=== PATIENT | male | born 1930 | race Caucasian/White ===

== ENCOUNTER 2017-12-28 23:35 | Inpatient (IN) | payer MEDICARE ==
[~2017-12-28] VITALS: Ht 180.3 cm; Wt 71.3 kg
[~2017-12-28 23:35] MED LIST: ACET-1757 PO; CA C1TAB62 PO; CARB1TAB43 PO; CARB1TAB47 PO; FINA5TAB4 PO; GABA-826 PO; MULT-658 PO; SULF1TAB24 PO; TAMS0.4C2 PO; TEMA15CA PO; TRAM50TA2 PO
[2017-12-29] MEDS ORDERED: MAGN2400 PO (00:08)
[2017-12-29] MEDS ORDERED: POLY17PO5 PO (00:08)
[2017-12-29] MEDS ORDERED: CYAN100014 PO (00:08)
[2017-12-29] MEDS ORDERED: LACT1CAP44 PO (00:08)
[2017-12-29] MEDS ORDERED: CALC-451 PO (00:08)
[2017-12-29] MEDS ORDERED: OMEP-110 PO (00:08)
[2017-12-29 00:40] LABS: ALBUMIN 3.4 g/dL (3.4-5.0); ANION GAP 7 mmol/L (5-15); CALCIUM 8.8 mg/dL (8.5-10.1); CHLORIDE 103 mmol/L (98-107); CREATININE 0.93 mg/dL (0.7-1.3)
[2017-12-29 01:03] LABS: BASOPHILS # (AUTO) 0.03 x10^3/uL (0-0.1); BASOPHILS % (AUTO) 0 % (0-1); EOSINOPHILS # (AUTO) 0.48 x10^3/uL (0-0.4); EOSINOPHILS % (AUTO) 6 % (1-7); LYMPHOCYTES # (AUTO) 1.57 x10^3/uL (1-3.4); LYMPHOCYTES % (AUTO) 19 % (22-44); MD NO; MEAN CORPUSCULAR HEMOGLOBIN 29.9 pg (27.5-34.5); MEAN CORPUSCULAR VOLUME 90.7 fL (81-97); MEAN PLATELET VOLUME 7.4 fL (7.4-10.4); MONOCYTES # (AUTO) 0.94 x10^3/uL (0.2-0.8); MONOCYTES % (AUTO) 12 % (2-9); NEUTROPHILS # (AUTO) 5.14 x10^3/uL (1.8-6.8); NEUTROPHILS % (AUTO) 63 % (42-75); PLATELET COUNT 264 x10^3/uL (130-400); RED BLOOD COUNT 4.64 x10^6/uL (4.38-5.82); RED CELL DISTRIBUTION WIDTH 14.4 % (9.4-14.8)
[2017-12-29 01:09] LABS: CULTURE INDICATED? YES; MICROSCOPIC INDICATED
[2017-12-29] MEDS ORDERED: CEFTRIAXONE PMX 1GM/50ML 50 ML IV ONE (01:30)
[2017-12-29] MEDS ORDERED: NYSTATIN TOPICAL POWDER 15GM TP PRN (01:30)
[2017-12-29] MEDS ORDERED: CEFTRIAXONE PMX 1GM/50ML 50 ML ONE (01:42)
[2017-12-29] MEDS ORDERED: POLYETHYLENE GLYCOL 17 GM PACKET PO PRN (02:30)
[2017-12-29] MEDS ORDERED: BISACODYL 10 MG SUPP PR PRN (02:30)
[2017-12-29] MEDS ORDERED: PROMETHAZINE 25 MG/ML, 1ML IM PRN (02:30)
[2017-12-29] MEDS ORDERED: ONDANSETRON 2MG/ML, 2ML IVPush PRN (02:30)
[2017-12-29] MEDS ORDERED: MAGNESIUM HYDROXIDE 8%, 30ML UDC PO PRN (02:30)
[2017-12-29] MEDS ORDERED: ONDANSETRON ODT 4 MG PO PRN (02:30)
[2017-12-29] MEDS ORDERED: ACETAMINOPHEN 325 MG TABLET PO PRN (02:30)
[2017-12-29] MEDS ORDERED: morphine SULFATE 10 MG/ML, 1ML IVPush PRN (02:30)
[2017-12-29] MEDS ORDERED: hydrALAzine 20 MG/ML, 1ML IVPush PRN (02:30)
[2017-12-29 02:35] VITALS: BP 126/77
[2017-12-29] MEDS: ACETAMINOPHEN 325 MG TABLET PO SCH ×5 (03:00→19:00)
[2017-12-29 03:07] LABS: HEMOGLOBIN A1C 5.6 % (4.2-6.3)
[2017-12-29 03:08] LABS: FREE T4 (FREE THYROXINE) 0.99 ng/dL (0.76-1.46); THYROID STIMULATING HORMONE 6.65 mIU/L (0.358-3.740)
[2017-12-29] MEDS: SODIUM CHLORIDE 0.9% 1,000 ML IV SCH ×2 (03:10→12:05)
[2017-12-29] MEDS: PIPERACILLIN/TAZO/PMX 3.375GM 50 ML IV SCH ×4 (03:10→20:46)
[2017-12-29] MEDS: CARBIDOPA/LEVODOPA CR 25 MG/100 MG TABLET PO SCH ×4 (03:44→20:46)
[2017-12-29] MEDS: HEPARIN 5,000 UNITS/ML, 1ML SQ SCH ×3 (06:06→22:47)
[2017-12-29 06:35] VITALS: BP 110/67
[2017-12-29] MEDS: CALCIUM/VITAMIN D3 250-125 TABLET PO SCH (10:30)
[2017-12-29] MEDS: CYANOCOBALAMIN 1,000 MCG TABLET PO SCH (10:30)
[2017-12-29] MEDS: LACTOBACILLUS CHEW TABLET PO SCH (10:30)
[2017-12-29] MEDS: OMEPRAZOLE 20 MG CAPSULE.DR PO SCH (10:30)
[2017-12-29] MEDS: GABAPENTIN 100 MG CAPSULE PO SCH ×2 (10:31→20:46)
[2017-12-29] MEDS: POLYETHYLENE GLYCOL 17 GM PACKET PO SCH (10:31)
[2017-12-29] MEDS: MULTIVITAMIN 1 TABLET PO SCH (10:31)
[2017-12-29] MEDS: SENNA/DOCUSATE TABLET PO SCH (10:31)
[2017-12-29 14:00] VITALS: BP 106/67
[2017-12-29 18:54] VITALS: BP 102/68
[2017-12-30 01:30] VITALS: BP 93/60
[2017-12-30] MEDS: PIPERACILLIN/TAZO/PMX 3.375GM 50 ML IV SCH ×4 (02:54→23:30)
[2017-12-30 06:25] LABS: BASOPHILS # (AUTO) 0.02 x10^3/uL (0-0.1); BASOPHILS % (AUTO) 0 % (0-1); EOSINOPHILS # (AUTO) 0.56 x10^3/uL (0-0.4); EOSINOPHILS % (AUTO) 9 % (1-7); LYMPHOCYTES # (AUTO) 1.57 x10^3/uL (1-3.4); LYMPHOCYTES % (AUTO) 25 % (22-44); MD NO; MEAN CORPUSCULAR HEMOGLOBIN 29.8 pg (27.5-34.5); MEAN CORPUSCULAR HGB CONC 33.1 g/dL (33.2-36.2); MEAN CORPUSCULAR VOLUME 90.2 fL (81-97); MEAN PLATELET VOLUME 7.7 fL (7.4-10.4); MONOCYTES # (AUTO) 0.73 x10^3/uL (0.2-0.8); MONOCYTES % (AUTO) 11 % (2-9); NEUTROPHILS # (AUTO) 3.49 x10^3/uL (1.8-6.8); NEUTROPHILS % (AUTO) 55 % (42-75); PLATELET COUNT 224 x10^3/uL (130-400); RED CELL DISTRIBUTION WIDTH 14.3 % (9.4-14.8)
[2017-12-30] MEDS: HEPARIN 5,000 UNITS/ML, 1ML SQ SCH ×3 (06:25→22:31)
[2017-12-30 06:34] LABS: ALBUMIN 2.6 g/dL (3.4-5.0); ANION GAP 5 mmol/L (5-15); CALCIUM 7.7 mg/dL (8.5-10.1); CHLORIDE 112 mmol/L (98-107)
[2017-12-30 06:37] LABS: ALKALINE PHOSPHATASE 81 U/L (45-117); BILIRUBIN,TOTAL 0.7 mg/dL (0.2-1.0); CHOL/HDL RATIO 2.6; CHOLESTEROL, TOTAL 111 mg/dL (140-239); CREATININE 0.92 mg/dL (0.7-1.3); HDL CHOL % 38 % (26-37); HDL CHOLESTEROL (DIRECT) 42 mg/dL (40-60); LDL CHOLESTEROL,CALCULATED 58 mg/dL (54-169); LDL/HDL RATIO 1.4 (0.5-3.0); TOTAL PROTEIN 5.9 g/dL (6.4-8.2); TRIGLYCERIDES 57 mg/dL (50-200); VLDL CHOLESTEROL 11 mg/dL (0-25)
[2017-12-30 06:38] LABS: ALANINE AMINOTRANSFERASE < 6 U/L (12-78)
[2017-12-30] MEDS: OMEPRAZOLE 20 MG CAPSULE.DR PO SCH (09:00)
[2017-12-30 09:50] VITALS: BP 88/55
[2017-12-30] MEDS: GABAPENTIN 100 MG CAPSULE PO SCH ×2 (10:58→22:22)
[2017-12-30] MEDS: POLYETHYLENE GLYCOL 17 GM PACKET PO SCH (10:58)
[2017-12-30] MEDS: SENNA/DOCUSATE TABLET PO SCH (10:58)
[2017-12-30] MEDS: LACTOBACILLUS CHEW TABLET PO SCH (10:58)
[2017-12-30] MEDS: MULTIVITAMIN 1 TABLET PO SCH (10:58)
[2017-12-30] MEDS: CYANOCOBALAMIN 1,000 MCG TABLET PO SCH (10:58)
[2017-12-30] MEDS: CARBIDOPA/LEVODOPA CR 25 MG/100 MG TABLET PO SCH ×3 (10:58→22:22)
[2017-12-30] MEDS: CALCIUM/VITAMIN D3 250-125 TABLET PO SCH (10:58)
[2017-12-30 14:20] VITALS: BP 94/59
[2017-12-30 18:42] VITALS: BP 93/56
[2017-12-31 00:02] VITALS: BP 90/49
[2017-12-31] MEDS: HEPARIN 5,000 UNITS/ML, 1ML SQ SCH ×3 (05:36→21:23)
[2017-12-31] MEDS: CEFTRIAXONE PMX 2GM/50ML 50 ML IV SCH (05:38)
[2017-12-31 06:13] LABS: BASOPHILS # (AUTO) 0.02 x10^3/uL (0-0.1); BASOPHILS % (AUTO) 0 % (0-1); EOSINOPHILS # (AUTO) 0.57 x10^3/uL (0-0.4); EOSINOPHILS % (AUTO) 10 % (1-7); LYMPHOCYTES # (AUTO) 1.79 x10^3/uL (1-3.4); LYMPHOCYTES % (AUTO) 31 % (22-44); MD NO; MEAN CORPUSCULAR HEMOGLOBIN 29.8 pg (27.5-34.5); MEAN CORPUSCULAR HGB CONC 33.2 g/dL (33.2-36.2); MEAN CORPUSCULAR VOLUME 89.9 fL (81-97); MEAN PLATELET VOLUME 7.7 fL (7.4-10.4); MONOCYTES # (AUTO) 0.77 x10^3/uL (0.2-0.8); MONOCYTES % (AUTO) 13 % (2-9); NEUTROPHILS # (AUTO) 2.68 x10^3/uL (1.8-6.8); NEUTROPHILS % (AUTO) 46 % (42-75); PLATELET COUNT 223 x10^3/uL (130-400); RED BLOOD COUNT 3.73 x10^6/uL (4.38-5.82); RED CELL DISTRIBUTION WIDTH 14.8 % (9.4-14.8)
[2017-12-31 06:23] LABS: CHLORIDE 111 mmol/L (98-107)
[2017-12-31 06:56] LABS: ANION GAP 7 mmol/L (5-15); CALCIUM 7.8 mg/dL (8.5-10.1); CREATININE 0.79 mg/dL (0.7-1.3); FOLATE LEVEL 17.5 ng/mL (3.1-17.5)
[2017-12-31 08:30] VITALS: BP 117/73
[2017-12-31] MEDS: GABAPENTIN 100 MG CAPSULE PO SCH ×2 (09:00→21:22)
[2017-12-31] MEDS: POLYETHYLENE GLYCOL 17 GM PACKET PO SCH (09:00)
[2017-12-31] MEDS: LACTOBACILLUS CHEW TABLET PO SCH (10:10)
[2017-12-31] MEDS: MULTIVITAMIN 1 TABLET PO SCH (10:11)
[2017-12-31] MEDS: CARBIDOPA/LEVODOPA CR 25 MG/100 MG TABLET PO SCH ×3 (10:12→21:22)
[2017-12-31] MEDS: CALCIUM/VITAMIN D3 250-125 TABLET PO SCH (10:12)
[2017-12-31] MEDS: CYANOCOBALAMIN 1,000 MCG TABLET PO SCH (10:12)
[2017-12-31] MEDS: OMEPRAZOLE 20 MG CAPSULE.DR PO SCH (10:12)
[2017-12-31] MEDS: SENNA/DOCUSATE TABLET PO SCH (10:13)
[2017-12-31 13:17] VITALS: BP 112/17
[2017-12-31 20:01] VITALS: BP 111/73
[2018-01-01 01:09] VITALS: BP 103/68
[2018-01-01] MEDS: CEFTRIAXONE PMX 2GM/50ML 50 ML IV SCH (05:14)
[2018-01-01] MEDS: HEPARIN 5,000 UNITS/ML, 1ML SQ SCH ×3 (05:15→21:48)
[2018-01-01 05:20] LABS: BASOPHILS # (AUTO) 0.03 x10^3/uL (0-0.1); BASOPHILS % (AUTO) 0 % (0-1); EOSINOPHILS # (AUTO) 0.73 x10^3/uL (0-0.4); EOSINOPHILS % (AUTO) 11 % (1-7); LYMPHOCYTES # (AUTO) 1.78 x10^3/uL (1-3.4); LYMPHOCYTES % (AUTO) 27 % (22-44); MD NO; MEAN CORPUSCULAR HGB CONC 32.7 g/dL (33.2-36.2); MEAN CORPUSCULAR VOLUME 91.6 fL (81-97); MEAN PLATELET VOLUME 7.5 fL (7.4-10.4); MONOCYTES # (AUTO) 0.79 x10^3/uL (0.2-0.8); MONOCYTES % (AUTO) 12 % (2-9); NEUTROPHILS # (AUTO) 3.22 x10^3/uL (1.8-6.8); NEUTROPHILS % (AUTO) 49 % (42-75); PLATELET COUNT 237 x10^3/uL (130-400); RED BLOOD COUNT 4.06 x10^6/uL (4.38-5.82); RED CELL DISTRIBUTION WIDTH 14.6 % (9.4-14.8)
[2018-01-01 05:34] LABS: ALBUMIN 2.7 g/dL (3.4-5.0); ANION GAP 6 mmol/L (5-15); CHLORIDE 111 mmol/L (98-107)
[2018-01-01 05:36] LABS: CREATININE 0.71 mg/dL (0.7-1.3)
[2018-01-01] MEDS: OMEPRAZOLE 20 MG CAPSULE.DR PO SCH (08:09)
[2018-01-01 09:07] VITALS: BP 105/64
[2018-01-01] MEDS: LACTOBACILLUS CHEW TABLET PO SCH (09:11)
[2018-01-01] MEDS: CYANOCOBALAMIN 1,000 MCG TABLET PO SCH (09:12)
[2018-01-01] MEDS: GABAPENTIN 100 MG CAPSULE PO SCH ×2 (09:12→20:50)
[2018-01-01] MEDS: MULTIVITAMIN 1 TABLET PO SCH (09:12)
[2018-01-01] MEDS: CARBIDOPA/LEVODOPA CR 25 MG/100 MG TABLET PO SCH ×3 (09:12→20:50)
[2018-01-01] MEDS: CALCIUM/VITAMIN D3 250-125 TABLET PO SCH (09:12)
[2018-01-01] MEDS: POLYETHYLENE GLYCOL 17 GM PACKET PO SCH (09:13)
[2018-01-01] MEDS: SENNA/DOCUSATE TABLET PO SCH (09:13)
[2018-01-01 15:47] LABS: CLOSTRIDIUM DIFFICILE ANTIGEN NEGATIVE; CLOSTRIDIUM DIFFICILE TOXIN NEGATIVE (Negative)
[2018-01-01 15:48] VITALS: BP 95/60
[2018-01-01 21:22] VITALS: BP 96/61
[2018-01-02 02:18] VITALS: BP 101/66
[2018-01-02] MEDS: CEFTRIAXONE PMX 2GM/50ML 50 ML IV SCH (05:15)
[2018-01-02] MEDS: HEPARIN 5,000 UNITS/ML, 1ML SQ SCH ×3 (05:15→21:08)
[2018-01-02 07:24] VITALS: BP 110/69
[2018-01-02] MEDS: POLYETHYLENE GLYCOL 17 GM PACKET PO SCH (09:00)
[2018-01-02] MEDS: CYANOCOBALAMIN 1,000 MCG TABLET PO SCH (09:25)
[2018-01-02] MEDS: LACTOBACILLUS CHEW TABLET PO SCH (09:25)
[2018-01-02] MEDS: SENNA/DOCUSATE TABLET PO SCH (09:25)
[2018-01-02] MEDS: GABAPENTIN 100 MG CAPSULE PO SCH ×2 (09:25→21:08)
[2018-01-02] MEDS: MULTIVITAMIN 1 TABLET PO SCH (09:26)
[2018-01-02] MEDS: CARBIDOPA/LEVODOPA CR 25 MG/100 MG TABLET PO SCH ×3 (09:26→21:09)
[2018-01-02] MEDS: CALCIUM/VITAMIN D3 250-125 TABLET PO SCH (09:26)
[2018-01-02] MEDS: OMEPRAZOLE 20 MG CAPSULE.DR PO SCH (09:26)
[2018-01-02 13:32] VITALS: BP 97/57
[2018-01-02 19:31] VITALS: BP 109/70
[2018-01-03 00:45] VITALS: BP 122/69
[2018-01-03 04:40] LABS: BASOPHILS # (AUTO) 0.03 x10^3/uL (0-0.1); BASOPHILS % (AUTO) 0 % (0-1); EOSINOPHILS # (AUTO) 0.76 x10^3/uL (0-0.4); EOSINOPHILS % (AUTO) 11 % (1-7); LYMPHOCYTES % (AUTO) 26 % (22-44); MD NO; MEAN CORPUSCULAR HEMOGLOBIN 29.6 pg (27.5-34.5); MEAN CORPUSCULAR HGB CONC 32.5 g/dL (33.2-36.2); MEAN CORPUSCULAR VOLUME 91.3 fL (81-97); MEAN PLATELET VOLUME 7.7 fL (7.4-10.4); MONOCYTES # (AUTO) 0.93 x10^3/uL (0.2-0.8); MONOCYTES % (AUTO) 13 % (2-9); NEUTROPHILS # (AUTO) 3.39 x10^3/uL (1.8-6.8); NEUTROPHILS % (AUTO) 49 % (42-75); PLATELET COUNT 248 x10^3/uL (130-400); RED BLOOD COUNT 4.35 x10^6/uL (4.38-5.82); RED CELL DISTRIBUTION WIDTH 14.7 % (9.4-14.8)
[2018-01-03 04:50] LABS: ALBUMIN 2.8 g/dL (3.4-5.0); ANION GAP 6 mmol/L (5-15); CALCIUM 7.8 mg/dL (8.5-10.1); CHLORIDE 109 mmol/L (98-107); CREATININE 0.83 mg/dL (0.7-1.3)
[2018-01-03] MEDS: CEFTRIAXONE PMX 2GM/50ML 50 ML IV SCH (05:18)
[2018-01-03] MEDS: HEPARIN 5,000 UNITS/ML, 1ML SQ SCH ×3 (05:18→21:23)
[2018-01-03 07:39] VITALS: BP 103/65
[2018-01-03] MEDS: MULTIVITAMIN 1 TABLET PO SCH (08:38)
[2018-01-03] MEDS: OMEPRAZOLE 20 MG CAPSULE.DR PO SCH (08:38)
[2018-01-03] MEDS: LACTOBACILLUS CHEW TABLET PO SCH (08:38)
[2018-01-03] MEDS: CYANOCOBALAMIN 1,000 MCG TABLET PO SCH (08:38)
[2018-01-03] MEDS: CALCIUM/VITAMIN D3 250-125 TABLET PO SCH (08:38)
[2018-01-03] MEDS: GABAPENTIN 100 MG CAPSULE PO SCH ×2 (08:38→21:23)
[2018-01-03] MEDS: SENNA/DOCUSATE TABLET PO SCH (08:38)
[2018-01-03] MEDS: CARBIDOPA/LEVODOPA CR 25 MG/100 MG TABLET PO SCH ×3 (08:38→21:23)
[2018-01-03] MEDS: POLYETHYLENE GLYCOL 17 GM PACKET PO SCH (08:39)
[2018-01-03 12:42] VITALS: BP 105/71
[2018-01-03 19:08] VITALS: BP 114/72
[2018-01-04 02:00] VITALS: BP 104/66
[2018-01-04] MEDS: HEPARIN 5,000 UNITS/ML, 1ML SQ SCH (05:31)
[2018-01-04] MEDS: CEFTRIAXONE PMX 2GM/50ML 50 ML IV SCH (05:31)
[2018-01-04 07:25] VITALS: BP 97/65
[2018-01-04] MEDS: CARBIDOPA/LEVODOPA CR 25 MG/100 MG TABLET PO SCH (08:29)
[2018-01-04] MEDS: MULTIVITAMIN 1 TABLET PO SCH (08:29)
[2018-01-04] MEDS: GABAPENTIN 100 MG CAPSULE PO SCH (08:29)
[2018-01-04] MEDS: OMEPRAZOLE 20 MG CAPSULE.DR PO SCH (08:29)
[2018-01-04] MEDS: CYANOCOBALAMIN 1,000 MCG TABLET PO SCH (08:29)
[2018-01-04] MEDS: LACTOBACILLUS CHEW TABLET PO SCH (08:29)
[2018-01-04] MEDS: CALCIUM/VITAMIN D3 250-125 TABLET PO SCH (08:29)
[2018-01-04] MEDS: SENNA/DOCUSATE TABLET PO SCH (08:29)
[2018-01-04] MEDS: POLYETHYLENE GLYCOL 17 GM PACKET PO SCH (08:30)
== END 2018-01-04 10:46 | disposition home or self-care (01) | DRG 699 ==
LOC: ED 23:59 → EDIP 12-29 02:03 → 3NE 12-29 02:20
PROVIDERS: ADMIT Internal Medicine; ATTEND Internal Medicine
PROC: 0T9B70Z Drainage of Bladder with Drainage Device, Via Natural or Artificial Opening (ICD-10-PCS; principal; 2017-12-29)
DX: T83.511A Infection and inflammatory reaction due to indwelling urethral catheter, initial encounter (principal); E44.1 Mild protein-calorie malnutrition; G20 Parkinson's disease; N49.2 Inflammatory disorders of scrotum; E53.8 Deficiency of other specified B group vitamins; K21.9 Gastro-esophageal reflux disease without esophagitis; L30.9 Dermatitis, unspecified; F32.9 Major depressive disorder, single episode, unspecified; R19.7 Diarrhea, unspecified
CPT/HCPCS: 36415; 80048; 80053; 80061; 81001; 82040; 82607; 82746; 83036; 83735; 84439; 84443; 85025; 87040; 87077; 87086; 87186; 87324; 96365; 99285; J0696; J1644; J2543; J7030